=== PATIENT | male | born 1980 | race Caucasian/White ===

== ENCOUNTER 2020-07-13 10:18 | Emergency (ER) | payer BC ==
[~2020-07-13] VITALS: Ht 177.8 cm; Wt 88.6 kg
[~2020-07-13 10:18] MED LIST: DOXYCYCLINE 10100 MG PO; LORTAB 5/500 501 TAB PO; PRILOSEC 20MG20 MG PO
[2020-07-13 10:26] VITALS: TEMP 98.3
[2020-07-13 12:09] VITALS: BP 123/86; PULSE 95
== END 2020-07-13 12:09 | disposition home or self-care (01) ==
LOC: COL.ER 10:18
DX: S61.411A Laceration without foreign body of right hand, initial encounter (principal); F17.210 Nicotine dependence, cigarettes, uncomplicated; W26.0XXA Contact with knife, initial encounter

== ENCOUNTER → 2020-07-24 | Outpatient (CLI) | payer BC ==
[2020-07-24 08:07] VITALS: BP 135/83; PULSE 87; TEMP 98.4
== END ==
LOC: COL.ER 08:10
DX: Z48.00 Encounter for change or removal of nonsurgical wound dressing (principal)